=== PATIENT | female | born 2000 | race Two or more races ===

== ENCOUNTER 2023-04-15 21:53 | Inpatient (IN) | payer MEDICAID ==
[~2023-04-15] VITALS: Ht 167.6 cm; Wt 87.5 kg
[2023-04-15] MEDS ORDERED: HALOPERIDOL 5 MG TABLET PO PRN (22:15)
[2023-04-15] MEDS ORDERED: ZOLPIDEM TARTRATE 10 MG TABLET PO PRN (22:15)
[2023-04-15] MEDS ORDERED: LORazepam 2 MG TABLET PO PRN (22:15)
[2023-04-15 23:48] VITALS: BP 96/57; PULSE 76; RESP 16; TEMP 98.2; O2SAT 99
[2023-04-16] MEDS ORDERED: INFLUENZA VIRUS VACCINE QVS 2023-24 (6MO+)/PF 60 MCG/0.5 ML SYRINGE IM. ONE (00:15)
[2023-04-16] MEDS ORDERED: BACITRACIN 28 GM OINTMENT TP PRN (06:45)
[2023-04-16] MEDS ORDERED: CloNIDine HCL 0.1 MG TABLET PO PRN (06:45)
[2023-04-16] MEDS ORDERED: LOPERAMIDE HCL 2 MG CAPSULE PO PRN (06:45)
[2023-04-16] MEDS ORDERED: DOCUSATE SODIUM 100 MG CAPSULE PO PRN (06:45)
[2023-04-16] MEDS ORDERED: ACETAMINOPHEN 325 MG TABLET PO PRN (06:45)
[2023-04-16] MEDS ORDERED: PETROLATUM,WHITE 28 GM JELLY TP PRN (06:45)
[2023-04-16] MEDS ORDERED: MAG HYDROX/ALUMINUM HYD/SIMETH ES 30 ML SUSPENSION UDCUP PO PRN (06:45)
[2023-04-16] MEDS ORDERED: IBUPROFEN 600 MG TABLET PO PRN (06:45)
[2023-04-16] MEDS ORDERED: BENZOCAINE/MENTHOL LOZENGE PO PRN (06:45)
[2023-04-16] MEDS ORDERED: OMEPRAZOLE 20 MG CAPSULE PO PRN (06:45)
[2023-04-16] MEDS ORDERED: ONDANSETRON HCL 4 MG TABLET PO PRN (06:45)
[2023-04-16] MEDS ORDERED: ALBUTEROL SULFATE HFA 90 MCG/PUFF 8 GM INHALER IH PRN (06:45)
[2023-04-16] MEDS ORDERED: MAGNESIUM HYDROXIDE SUSPENSION 30 ML UDCUP PO PRN (06:45)
[2023-04-16 08:30] VITALS: BP 106/67; PULSE 72; RESP 16; TEMP 97.6; O2SAT 96
[2023-04-16 10:06] LABS: BASOPHILS % (AUTO) 0.5 % (0.0-2.0); EOSINOPHILS % (AUTO) 0.2 % (1.0-6.0); HEMATOCRIT 37.9 % (36-46); HEMOGLOBIN 12.7 g/dL (12.0-16.0); LYMPHOCYTES # (AUTO) 2.2 K/uL (1.0-4.8); LYMPHOCYTES % (AUTO) 25.1 % (22.0-44.0); MEAN CORPUSCULAR HEMOGLOBIN 31.3 pg (26.0-34.0); MEAN CORPUSCULAR HGB CONC 33.5 G/dL (31.0-37.0); MEAN CORPUSCULAR VOLUME 94 fL (80-100); MONOCYTES # (AUTO) 0.6 K/uL (0.1-1.0); NEUTROPHILS % (AUTO) 67.2 % (40.0-70.0); PLATELET COUNT (AUTO) 225 K/uL (150-450); RED BLOOD CELL COUNT(AUTO) 4.05 MIL/uL (4.00-5.20); RED CELL DISTRIBUTION WIDTH 13.1 % (11.5-14.5); WHITE BLOOD COUNT (AUTO) 8.9 K/uL (4.5-11.0)
[2023-04-16 10:46] LABS: ALANINE AMINOTRANSFERASE 20 U/L (12-78); ALBUMIN 3.5 g/dL (3.4-5.0); ALKALINE PHOSPHATASE 73 U/L (46-116); ANION GAP 8 mmol/L (8-16); ASPARTATE AMINOTRANSFERASE 15 U/L (15-37); BILIRUBIN,TOTAL 0.3 mg/dL (0.1-1.0); CALCIUM, TOTAL 9.3 mg/dL (8.8-10.5); CARBON DIOXIDE 27 mmol/L (22-29); CHLORIDE 103 mmol/L (98-107); CREATININE 0.53 mg/dL (0.60-1.30); FREE T4 (FREE THYROXINE) 1.16 ng/dL (0.76-1.46); GLOMERULAR FILTR. RATE CALC > 60 mL/min (>60); GLUCOSE,RANDOM 87 mg/dL (70-110); HCG,QUANTITATIVE 99513 mIU/mL (0-6); POTASSIUM 3.9 mmol/L (3.5-5.1); SODIUM SERUM 138 mmol/L (136-145); T4 (THYROXINE) 10.7 mcg/dL (4.7-13.3); TOTAL PROTEIN, SERUM 6.8 g/dL (6.4-8.2); UREA NITROGEN, BLOOD 9 mg/dL (7-18)
[2023-04-16] MEDS: PRENATAL NO.137/IRON/FOLIC ACID TABLET PO SCH (21:15)
[2023-04-16 21:18] VITALS: BP 112/59; PULSE 75; RESP 18; TEMP 99.2; O2SAT 98
[2023-04-17 08:59] VITALS: BP 115/69; PULSE 90; RESP 18; TEMP 97.8; O2SAT 98
[2023-04-17] MEDS ORDERED: PREN-217 PO (09:03)
[2023-04-19 03:06] LABS: HEPATITIS C AB (EIA) Non Reactive (Non Reactive)
== END 2023-04-17 10:30 | disposition home or self-care (01) | DRG 566 ==
LOC: B3A 22:18
PROVIDERS: ADMIT Psychiatry & Neurology Psychiatry; ATTEND Psychiatry & Neurology Psychiatry
DX: O99.341 Other mental disorders complicating pregnancy, first trimester (principal); R45.851 Suicidal ideations; F20.0 Paranoid schizophrenia; O99.611 Diseases of the digestive system complicating pregnancy, first trimester; F31.9 Bipolar disorder, unspecified; G47.00 Insomnia, unspecified; O26.891 Other specified pregnancy related conditions, first trimester; K21.9 Gastro-esophageal reflux disease without esophagitis; F41.9 Anxiety disorder, unspecified; O99.331 Smoking (tobacco) complicating pregnancy, first trimester; F17.200 Nicotine dependence, unspecified, uncomplicated; Z3A.00 Weeks of gestation of pregnancy not specified
CPT/HCPCS: 80053; 84436; 84439; 84443; 84702; 85025; 86592; 86803; 87340

== ENCOUNTER 2025-02-04 12:15 | Inpatient (IN) | payer SELFPAY ==
[~2025-02-04] VITALS: Ht 167.6 cm; Wt 84.8 kg
[2025-02-04 13:07] LABS: COVID AG,FIA SOURCE NASAL SWAB
[2025-02-04 14:18] LABS: SARS-COV2 (COVID) ANTIGEN,FIA Negative (Negative)
[2025-02-04 21:45] VITALS: BP 133/95; PULSE 78; RESP 18; TEMP 98.2; O2SAT 100
[2025-02-04] MEDS: ZOLPIDEM TARTRATE 10 MG TABLET PO PRN (21:47)
[2025-02-05] MEDS: INFLUENZA VIRUS VACCINE TVS (6MO+) 2025-26/PF 45 MCG/0.5 ML SYRINGE IM. ONE (04:51)
[2025-02-05] MEDS ORDERED: LOPERAMIDE HCL 2 MG CAPSULE PO PRN (06:30)
[2025-02-05] MEDS ORDERED: MAGNESIUM HYDROXIDE SUSPENSION 30 ML UDCUP PO PRN (06:30)
[2025-02-05] MEDS ORDERED: MAG HYDROX/ALUMINUM HYD/SIMETH ES 30 ML SUSPENSION UDCUP PO PRN (06:30)
[2025-02-05] MEDS ORDERED: PETROLATUM,WHITE 28 GM JELLY TP PRN (06:30)
[2025-02-05] MEDS ORDERED: GuaiFENesin/D-METHORPHAN [SUGAR-FREE] 200-20MG/10 ML SYRUP UDCUP PO PRN (06:30)
[2025-02-05] MEDS ORDERED: ACETAMINOPHEN 325 MG TABLET PO PRN (06:30)
[2025-02-05] MEDS ORDERED: DOCUSATE SODIUM 100 MG CAPSULE PO PRN (06:30)
[2025-02-05] MEDS ORDERED: ALBUTEROL SULFATE HFA 90 MCG/PUFF 8 GM INHALER IH PRN (06:30)
[2025-02-05] MEDS ORDERED: NICOTINE 14 MG/24 HOUR PATCH TD PRN (06:30)
[2025-02-05 08:23] VITALS: BP 116/69; PULSE 72; RESP 16; TEMP 97.6; O2SAT 97
[2025-02-05] MEDS ORDERED: LORazepam 2 MG/ML VIAL ONE (12:14)
[2025-02-05] MEDS: LORazepam 2 MG/ML VIAL IM ONE (12:36)
[2025-02-05] MEDS: IBUPROFEN 400 MG TABLET PO PRN (18:11)
[2025-02-05 20:17] VITALS: RESP 17
[2025-02-06] MEDS: LURASIDONE HCL 40 MG TABLET PO SCH (06:23)
[2025-02-06 08:33] VITALS: RESP 15
[2025-02-07 08:11] VITALS: RESP 18
[2025-02-07 20:59] VITALS: RESP 18
[2025-02-07] MEDS: LORazepam 2 MG/ML VIAL IM ONE (21:23)
[2025-02-08 09:36] VITALS: RESP 17
[2025-02-08 20:18] VITALS: BP 109/62; PULSE 78; RESP 17; TEMP 97.8; O2SAT 98
[2025-02-09 08:09] VITALS: RESP 18
[2025-02-09 20:19] VITALS: BP 115/78; PULSE 68; RESP 17; TEMP 97.8; O2SAT 97
[2025-02-10 08:09] VITALS: RESP 16
[2025-02-10 20:17] VITALS: RESP 16
[2025-02-11 08:30] VITALS: RESP 17
[2025-02-11 20:23] VITALS: BP 117/88; PULSE 70; RESP 16; TEMP 97.7; O2SAT 97
[2025-02-12] VITALS (7 sets, daily range): BP systolic 106–124; BP diastolic 61–74; PULSE 58–85; RESP 14–17; TEMP 97.3–98.5; O2SAT 99–100
[2025-02-12] MEDS: ONDANSETRON 4 MG TABLET PO PRN (06:35)
[2025-02-12 13:11] LABS: GLUCOMETER DEV NAME(LOC) BV3S.2; GLUCOSE,POINT OF CARE 119 MG/DL (70-110)
[2025-02-13 08:08] VITALS: RESP 17
[2025-02-13] MEDS ORDERED: LURA40TA2 PO (10:51)
== END 2025-02-13 13:00 | disposition left against medical advice (07) | DRG 885 ==
LOC: EMS 12:15 → B2S 20:43 → B3A 02-05 13:08
PROVIDERS: ADMIT Psychiatry & Neurology Child & Adolescent Psychiatry; ATTEND Psychiatry & Neurology Child & Adolescent Psychiatry
PROC: GZ58ZZZ Individual Psychotherapy, Cognitive-Behavioral (ICD-10-PCS; principal; 2025-02-05)
PROC: GZ56ZZZ Individual Psychotherapy, Supportive (ICD-10-PCS; 2025-02-05)
DX: F20.9 Schizophrenia, unspecified (principal); F10.10 Alcohol abuse, uncomplicated; Z20.822 Contact with and (suspected) exposure to COVID-19; F41.9 Anxiety disorder, unspecified; G47.00 Insomnia, unspecified; Z53.29 Procedure and treatment not carried out because of patient's decision for other reasons
CPT/HCPCS: 82962; 87081; 99285; J1200; J1630; J2060; Q0162

== ENCOUNTER 2025-02-12 15:20 | Emergency (ER) | payer SELFPAY ==
[~2025-02-12] VITALS: Ht 170.2 cm; Wt 100.0 kg
[2025-02-12 16:08] VITALS: TEMP 97.8
[2025-02-12 16:34] LABS: PLATELET COUNT (AUTO) 214 K/uL (150-450); RED BLOOD CELL COUNT(AUTO) 4.51 MIL/uL (4.00-5.20); RED CELL DISTRIBUTION WIDTH 13.3 % (11.5-14.5); WHITE BLOOD COUNT (AUTO) 9.3 K/uL (4.5-11.0)
[2025-02-12 16:44] LABS: CALCIUM, TOTAL 8.9 mg/dL (8.8-10.5); CREATININE 0.69 mg/dL (0.60-1.30); GLOMERULAR FILTR. RATE CALC > 60 mL/min (>60); GLUCOSE,RANDOM 89 mg/dL (70-110); SODIUM SERUM 136 mmol/L (136-145); UREA NITROGEN, BLOOD 11 mg/dL (7-18)
[2025-02-12 16:54] LABS: TROPONIN I-HIGH SENSITIVITY 4 ng/L (<51)
[2025-02-12 17:59] LABS: COVID AG,FIA SOURCE NASAL SWAB
[2025-02-12 18:05] LABS: APPEARANCE,URINE CLEAR (CLEAR); GLUCOSE, URINE (UA) NEGATIVE (NEGATIVE); LEUKOCYTE ESTERASE ,URINE SMALL (NEGATIVE); NITRATE,URINE NEGATIVE (NEGATIVE); OCCULT BLOOD,URINE NEGATIVE (NEGATIVE); PH,URINE DRUG SCREEN 6.5 (5.0-8.0); SPECIFIC GRAVITIY, URINE 1.021 (1.003-1.030)
[2025-02-12 18:13] LABS: ALCOHOL, URINE DRUG SCREEN NEGATIVE (NEGATIVE); AMPHET/METH SCREEN,URINE NEGATIVE (NEGATIVE); BARBITURATE SCREEN, URINE NEGATIVE (NEGATIVE); CANNABINOID SCREEN,URINE NEGATIVE (NEGATIVE); COCAINE SCREEN,URINE NEGATIVE (NEGATIVE); METHADONE SCREEN, URINE NEGATIVE (NEGATIVE)
[2025-02-12 18:22] LABS: SARS-COV2 (COVID) ANTIGEN,FIA Negative (Negative)
[2025-02-12 19:22] LABS: SQUAMOUS EPITHELIAL CELL,UR Rare /LPF (None Seen)
[2025-02-12 20:44] VITALS: PULSE 68; O2SAT 95
[2025-02-12 21:55] VITALS: BP 115/64; RESP 16
[2025-02-13] MEDS ORDERED: LURA40TA2 PO (10:51)
== END 2025-02-12 22:00 | disposition home or self-care (01) ==
LOC: EMS 15:34
DX: R55 Syncope and collapse (principal); F14.90 Cocaine use, unspecified, uncomplicated; F15.90 Other stimulant use, unspecified, uncomplicated; Z98.890 Other specified postprocedural states; Z20.822 Contact with and (suspected) exposure to COVID-19
CPT/HCPCS: 99285; 70450; 71045; 87426; 80048; 81001; 84484; 84703; 85025; 36415; 93005; 80307; G0480

== ENCOUNTER 2025-02-19 20:57 | Emergency (ER) | payer MEDICAID ==
[~2025-02-19] VITALS: Ht 170.2 cm; Wt 100.0 kg
[~2025-02-19 20:57] MED LIST: LURA40TA2 PO
[2025-02-19 20:58] VITALS: BP 110/72; PULSE 64; RESP 14; TEMP 98.7; O2SAT 98
[2025-02-19 21:53] LABS: COVID AG,FIA SOURCE NASAL SWAB
[2025-02-19 22:14] LABS: SARS-COV2 (COVID) ANTIGEN,FIA Negative (Negative)
== END 2025-02-20 00:15 ==
LOC: EMS 20:57
DX: F23 Brief psychotic disorder (principal); R45.1 Restlessness and agitation; F14.90 Cocaine use, unspecified, uncomplicated; F15.90 Other stimulant use, unspecified, uncomplicated; Z98.890 Other specified postprocedural states; Z02.89 Encounter for other administrative examinations; Z65.3 Problems related to other legal circumstances; Z78.1 Physical restraint status; Z20.822 Contact with and (suspected) exposure to COVID-19
CPT/HCPCS: 99284; Z7502; Z7610

== ENCOUNTER 2025-02-20 02:07 | Emergency (ER) | payer MEDICAID ==
[~2025-02-20] VITALS: Ht 167.6 cm; Wt 100.0 kg
[2025-02-20 02:19] VITALS: BP 0/0; RESP 16; O2SAT 0
[2025-02-20] MEDS ORDERED: ACETAMINOPHEN 500 MG TABLET PO ONE (04:15)
== END 2025-02-20 04:07 | disposition home or self-care (01) ==
LOC: EMS 02:07
DX: F23 Brief psychotic disorder (principal); F14.90 Cocaine use, unspecified, uncomplicated; F15.90 Other stimulant use, unspecified, uncomplicated; Z98.890 Other specified postprocedural states; Z79.899 Other long term (current) drug therapy; Z02.89 Encounter for other administrative examinations
CPT/HCPCS: 99283; Z7502